=== PATIENT | female | born 1930 | race Two or more races ===

== ENCOUNTER 2022-01-23 00:14 | Emergency (ER) | payer OTHER ==
[~2022-01-23] VITALS: Ht 157.5 cm; Wt 63.5 kg
[2022-01-23] MEDS ORDERED: AMBIEN10 MG (00:20)
[2022-01-23] MEDS ORDERED: COZAAR100 MG (00:20)
[2022-01-23] MEDS ORDERED: CHILDREN'S ASPI81 MG (00:21)
[2022-01-23] MEDS ORDERED: NABUMETONE500 MG PO (03:47)
== END 2022-01-23 03:52 ==
LOC: ER 00:14
DX: S09.8XXA Other specified injuries of head, initial encounter (principal); S39.82XA Other specified injuries of lower back, initial encounter; S79.812A Other specified injuries of left hip, initial encounter; S79.811A Other specified injuries of right hip, initial encounter; W18.2XXA Fall in (into) shower or empty bathtub, initial encounter; Y93.89 Activity, other specified; Y92.091 Bathroom in other non-institutional residence as the place of occurrence of the external cause; I10 Essential (primary) hypertension